=== PATIENT | female | born 2005 | race Caucasian/White ===

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

== ENCOUNTER 2025-01-15 20:33 | Emergency (ER) | payer OTHER ==
[~2025-01-15] VITALS: Ht 149.9 cm; Wt 47.2 kg
[~2025-01-15 20:33] MED LIST: CYCLOBENZAPRINE10 MG PO; ESCITALOPRAM OX10 MG PO; MACROBID 100 M100 MG PO
[2025-01-15 21:40] LABS: BASOPHILS 0.3 % (0.1-1.2); EOSINOPHILS 0.4 % (0.7-5.8); HEMATOCRIT 38.8 % (34.1-44.9); HEMOGLOBIN 13.4 g/dL (11.2-15.7); LYMPHOCYTES 27.9 % (19.3-51.7); MCH 29.3 PG (25.6-32.2); MCHC 34.5 g/dL (32.2-35.5); MCV 84.9 fL (79.4-94.8); MONOCYTES 7.1 % (4.7-12.5); NEUTROPHILS 64.2 % (34.0-71.1); PLATELET COUNT 279 K/uL (182-369); RBC 4.57 M/uL (3.93-5.22)
[2025-01-15] MEDS ORDERED: ondansetron HCL 4 MG/2 ML VIAL IV ONE (21:45)
[2025-01-15 21:58] LABS: ALBUMIN 4.5 g/dL (3.4-5.0); ALBUMIN/GLOBULIN RATIO 1.41 (1.1-2.4); ANION GAP 15.9 (7-21); BILIRUBIN, TOTAL 1.6 mg/dL (0.2-1.0); BUN/CREATININE RATIO 12.3 (6.0-28.6); CALCIUM 9.3 mg/dL (8.5-10.1); CREATININE, SERUM 0.65 mg/dL (0.55-1.02); MAGNESIUM 1.9 mg/dL (1.8-2.4); POTASSIUM 2.9 mmol/L (3.5-5.1); PROTEIN, TOTAL 7.7 g/dL (6.4-8.2)
[2025-01-15 22:37] LABS: BILIRUBIN, URINE NEGATIVE (negative); BLOOD/HGB, URINE NEGATIVE (Negative); KETONE, URINE SMALL (Negative); LEUK ESTERASE, URINE SMALL (negative); NITRITE, URINE NEGATIVE (negative); PH, URINE 6.5 (5-7)
[2025-01-15] MEDS ORDERED: POTASSIUM CHLORIDE 10 MEQ TABCR PO ONE (22:45)
[2025-01-15 22:47] LABS: BACTERIA, URINE 1+ /hpf (negative); CASTS, URINE NONE SEEN \\lpf; CRYSTALS, URINE NONE SEEN (0-1+); EPITHELIAL CELLS, URINE SQUAMOUS 2+ /lpf (0-1+); REFLEX CULTURE, URINE No (No)
[2025-01-15 22:53] LABS: COLLECTION TYPE, URINE CLEAN CATCH
[2025-01-15] MEDS ORDERED: MACROBID 100 M100 MG PO (23:12)
[2025-01-15] MEDS ORDERED: PYRIDIUM200 MG PO (23:12)
[2025-01-15] MEDS ORDERED: ONDANSETRON ODT8 MG PO (23:12)
[2025-01-15] MEDS ORDERED: PHENAZOPYRIDINE HCL 100 MG TAB PO ONE (23:15)
[2025-01-15] MEDS ORDERED: droPERidol 5 MG/2 ML VIAL IV ONE (23:15)
[2025-01-15] MEDS ORDERED: PROMETHAZINE HCL 25 MG SUPP. HOME.PACK PR ONE (23:15)
[2025-01-15] MEDS ORDERED: ONDANSETRON 4 MG HOME.PACK SL ONE (23:15)
[2025-01-15] MEDS ORDERED: NITROFURANTOIN MONOHYD MACROCR 100 MG HOME.PACK PO ONE (23:15)
[2025-01-15 23:53] VITALS: BP 110/99
== END 2025-01-15 23:40 | disposition home or self-care (01) ==
LOC: ED 20:33
PROVIDERS: Family Medicine
DX: N39.0 Urinary tract infection, site not specified (principal); Z79.899 Other long term (current) drug therapy
CPT/HCPCS: 36415; 80053; 81001; 83690; 83735; 84703; 85025; 96374; 96375; 99284-25; A9270; J1790; J2405